=== PATIENT | female | born 1975 | race Two or more races ===

== ENCOUNTER 2016-11-29 11:04 | Emergency (ER) | payer SELFPAY ==
[~2016-11-29] VITALS: Ht 167.6 cm; Wt 96.2 kg
[~2016-11-29 11:04] MED LIST: CYCL10TA2 PO; HYDR-79 PO
[2016-11-29 11:21] VITALS: BP 162/101
--- NOTE | 2016-11-29 11:56 | RAD ---
WRIST 3V RIGHT Clinical Indication: Pain in distal radius for over a month, received injection at the [place] last week told to return in 2 weeks but became painful today. Comparison: None. Technique: Frontal, oblique, lateral, and coned scaphoid views of the right wrist are obtained. Findings: No acute fracture or dislocation is seen. Carpal bones remain aligned. Scaphoid appears intact without sclerosis. Surrounding soft tissues demonstrate no acute finding. IMPRESSION: No acute osseous injury seen.
[2016-11-29] MEDS ORDERED: NAPR500T8 PO (12:00)
[2016-11-29] MEDS ORDERED: DEXAMETHASONE SOD PHOS 10 MG/ML VIAL IM ONE (12:00)
--- NOTE | 2016-11-29 12:08 | ED.ADGEN ---
Past History Past Medical History: Hypertension Past Surgical History: Tonsillectomy, Other Alcohol Use: Occasionally Drug Use: None Adult General HPI HPI Patient is a 41-[facility]. She states that she is been evaluated for carpal tunnel the past and found to be negative. Patient denies any specific injury or trauma to the area. She has had some issues with rheumatoid arthritis in the past. Review of Systems Review of Systems Constitutional: Denies fever or chills [] Eyes: Denies change in visual acuity, redness, or eye pain [] HENT: Denies nasal congestion or sore throat [] Respiratory: Denies cough or shortness of breath [] Cardiovascular: No additional information not addressed in HPI [] GI: Denies abdominal pain, nausea, vomiting, bloody stools or diarrhea [] : Denies dysuria or hematuria [] Musculoskeletal: Denies back pain or joint pain [] Integument: Denies rash or skin lesions [] Neurologic: Denies headache, focal weakness or sensory changes [] Endocrine: Denies polyuria or polydipsia [] Current Medications Current Medications Current Medications Medications (Trade) Dose Ordered Sig/Cesario Start Time Stop Time Status Last Admin Dose Admin Dexamethasone Sodium Phosphate (Decadron) 10 mg 1X ONCE 11/29/16 12:00 11/29/16 12:01 DC 11/29/16 11:51 10 MG Allergies Allergies Allergies Coded Allergies Type Severity Reaction Last Updated Verified No Known Allergies Allergy Unknown 09/12/16 Yes Physical Exam Physical Exam Constitutional: Well developed, well nourished, no acute distress, non-toxic appearance. [] HENT: Normocephalic, atraumatic, bilateral external ears normal, oropharynx moist, no oral exudates, nose normal. [] Eyes: PERRLA, EOMI, conjunctiva normal, no discharge. [] Neck: Normal range of motion, no tenderness, supple, no stridor. [] Cardiovascular:Heart rate regular rhythm, no murmur [] Lungs & Thorax: Bilateral breath sounds clear to auscultation [] Abdomen: Bowel sounds normal, soft, no tenderness, no masses, no pulsatile masses. [] Skin: Warm, dry, no erythema, no rash. [] Extremities: No obvious deformity. Tender to palpation along the abductor pollicis longus, no cyanosis, no clubbing, ROM intact, no edema. [] Neurologic: Alert and oriented X 3, normal motor function, normal sensory function, no focal deficits noted. [] Psychologic: Affect normal, judgement normal, mood normal. [] Current Patient Data Vital Signs Vital Signs Date Time Temp Pulse Resp B/P Pulse Ox O2 Delivery O2 Flow Rate FiO2 11/29/16 11:21 98.7 127 20 95 Room Air EKG EKG [] Radiology/Procedures Radiology/Procedures [] Course & Med Decision Making Course & Med Decision Making Pertinent Labs and Imaging studies reviewed. (See chart for details) X-ray was negative. I do believe this is an overuse injury. Patient was given a dose of Decadron here in emergency department. I sent her home with a prescription for naproxen. She is to keep her follow-up appointments previously scheduled. [] Final Impression Final Impression Wrist pain [] Problems: Dragon Disclaimer Dragon Disclaimer This electronic medical record was generated, in whole or in part, using a voice recognition dictation system. CAMILLE RUANO MD Nov 29, 2016 12:08
== END 2016-11-29 12:05 | disposition home or self-care (01) ==
LOC: ER 11:04
DX: M25.531 Pain in right wrist (principal); I10 Essential (primary) hypertension; M06.9 Rheumatoid arthritis, unspecified
CPT/HCPCS: 73110; 96372; 99284; J1100